=== PATIENT | female | born 1985 | race Asian ===

== ENCOUNTER 2016-11-08 10:02 | Emergency (ER) | payer MEDICAID ==
[2016-11-08 10:28] VITALS: BP 120/74
[2016-11-08 11:18] LABS: UA SPECIFIC GRAVITY <=1.005 (1.005-1.035); microscopic required? YES; urine erythrocyte 3+ (NEGATIVE)
== END 2016-11-08 12:00 | disposition home or self-care (01) ==
LOC: ED 10:02
PROVIDERS: Emergency Medicine
DX: N30.01 Acute cystitis with hematuria (principal)